=== PATIENT | female | born 1975 | race Caucasian/White ===

== ENCOUNTER 2017-04-12 21:14 | Emergency (ER) | payer SELFPAY ==
[~2017-04-12] VITALS: Ht 162.6 cm; Wt 68.9 kg
[2017-04-12 21:21] VITALS: Ht 162.6 cm; Wt 68.9 kg
--- NOTE | 2017-04-12 22:13 | ERD ---
ER Documentation Chief Complaint Chief Complaint upper abd pain radaiting to back, w/ vomiting HPI 41-year-old female, previously healthy, presents to the emergency department complaining of 1 day with epigastric pain radiated to the back associated with nausea postprandial emesis 2. The pain is rated 7/10, constant, sharp. No treatment attempted at this time. No history of previous episodes. The patient denies fevers, chills, diarrhea, constipation, no urinary symptoms. ROS A 12-point review of systems was performed and negative other than presented in the history of present illness. SYSTEMIC symptoms: no fever, chills, no night sweats, no weight loss EYE symptoms: No blurred vision, no eye discharge OTOLARYNGEAL symptoms: No hearing loss. No ear pain, no sore throat CARDIOVASCULAR symptoms: No chest pain or discomfort, no palpitations. PULMONARY symptoms: No dyspnea, no cough, no wheezing. GASTROINTESTINAL symptoms: Per HPI MUSCULOSKELETAL symptoms: No arthralgias, no muscle aches. NEUROLOGY symptoms: No confusion, no syncope, no numbness or tingling. SKIN: No rashes Medications Home Meds Active Scripts Acetaminophen* (Tylenol*) 325 Mg Tablet, 1 TAB PO Q6 Y for PAIN AND OR ELEVATED TEMP, #20 TAB Prov:ÓSCAR QUINTANILLA MD 04/13/17 Ranitidine Hcl* (Zantac*) 150 Mg Tablet, 150 MG PO BID Y for EPIGASTRIC PAIN, # 30 TAB Prov:ÓSCAR QUINTANILLA MD 04/13/17 Allergies Allergies: Coded Allergies: No Known Allergy (Verified Allergy, Unknown, 03/26/07) PMhx/Soc History of Surgery: Yes (c/s x 2) Hx Miscellaneous Medical Probl: Yes (HEP B) Hx Alcohol Use: No Hx Substance Use: No Hx Tobacco Use: No Smoking Status: Never smoker Physical Exam Vitals Vital Signs Date Time Temp Pulse Resp B/P Pulse Ox O2 Delivery O2 Flow Rate FiO2 04/13/17 01:05 98.4 78 16 122/67 100 Room Air 04/12/17 21:21 99.4 100 20 151/86 100 Physical Exam Patient is in no acute distress, vital signs stable. Alert and fully oriented. EYES: PERRLA, EOMI, Sclera and conjunctiva appear normal. EARS: Canals clear, tympanic membranes WNL THROAT: Normal oropharynx. NECK: Supple, No lymphadenopathy. Full ROM without pain or tenderness. HEART: RRR, no rubs, murmurs, clicks or gallops. LUNGS: Clear to auscultation. ABDOMEN: Soft, mild tenderness in epigastric area. No peritoneal signs EXTREMITIES: No edema bilaterally. BACK: Full ROM, no deformity, normal back exam NEURO: Cranial nerves grossly intact, no motor or sensory deficit Result Diagram: 04/12/17224304/12/172243 Results 24 hrs Laboratory Tests Test 04/12/17 22:41 04/12/17 22:44 Urine Color YELLOW Urine Clarity CLEAR Urine pH 9.0 Urine Specific [place] 1.012 Urine Ketones 1+mg/dL Urine Nitrite NEGATIVEmg/dL Urine Bilirubin NEGATIVEmg/dL Urine Urobilinogen NEGATIVEmg/dL Urine Leukocyte Esterase NEGATIVELeu/ul Urine Hemoglobin NEGATIVEmg/dL Urine Glucose NEGATIVEmg/dL Urine Total Protein NEGATIVEmg/dl White Blood Count 8.010^3/ul Red Blood Count 4.7410^6/ul Hemoglobin 14.2g/dl Hematocrit 40.5% Mean Corpuscular Volume 85.4fl Mean Corpuscular Hemoglobin 30.0pg Mean Corpuscular Hemoglobin Concent 35.1g/dl Red Cell Distribution Width 12.2% Platelet Count 57927^3/UL Mean Platelet Volume 10.8fl Neutrophils % 90.3% Lymphocytes % 5.6% Monocytes % 3.6% Eosinophils % 0.2% Basophils % 0.2% Nucleated Red Blood Cells % 0.0/100WBC Neutrophils # 7.210^3/ul Lymphocytes # 0.510^3/ul Monocytes # 0.310^3/ul Eosinophils # 0.010^3/ul Basophils # 0.010^3/ul Nucleated Red Blood Cells # 0.010^3/ul Sodium Level 139mmol/L Potassium Level 3.7mmol/L Chloride Level 102mmol/L Carbon Dioxide Level 26mmol/L Anion Gap 15 Blood Urea Nitrogen 7mg/dl Creatinine 0.72mg/dl Glucose Level 141mg/dl Calcium Level 9.8mg/dl Total Bilirubin 0.5mg/dl Direct Bilirubin 0.00mg/dl Indirect Bilirubin 0.5mg/dl Aspartate Amino Transf (AST/SGOT) 29IU/L Alanine Aminotransferase (ALT/SGPT) 42IU/L Alkaline Phosphatase 126IU/L Total Protein 8.9g/dl Albumin 4.5g/dl Globulin 4.40g/dl Albumin/Globulin Ratio 1.02 Lipase 69U/L Current Medications Medications (Trade) Dose Ordered Sig/Brenda Route PRN Reason Start Time Stop Time Status Last Admin Dose Admin Sodium Chloride (NS) 500 ml @ 500 mls/hr Q1H STAT IV 04/12/17 22:24 04/12/17 23:23 DC 04/12/17 23:04 Morphine Sulfate (morphine) 2 mg ONCE STAT IV 04/12/17 22:24 04/12/17 22:27 DC 04/12/17 23:04 Ondansetron HCl (Zofran Inj) 4 mg ONCE STAT IV 04/12/17 22:24 04/12/17 22:27 DC 04/12/17 23:04 Famotidine (Pepcid Iv) 20 mg ONCE STAT IV 04/12/17 22:24 04/12/17 22:27 DC 04/12/17 23:04 [place] [id number] Radiology Main Line: [phone] DIAGNOSTIC IMAGING REPORT Patient: JUJU BARTON : 1975 Age: 41 Sex: F MR #: [id number] DOS: 04/12/172223 Ordering MD: ÓSCAR QUINTANILLA MD Location: [facility] Room/Bed: PROCEDURE: US right upper quadrant CLINICAL INDICATION: Abdominal pain TECHNIQUE: Multiple real-time images were acquired of the patient's right upper abdomen utilizing a high resolution transducer. COMPARISON: None available FINDINGS: Liver: Normal in size, contour and echogenicity. Normal directional blood flow is seen within the patent main portal vein. The maximum dimension estimated at 13 cm . Gallbladder: Normal. No sonographic Muro's sign is reported. Common bile duct: Normal; 2.7 mm. There is no evidence for choledocholithiasis. Right Kidney: Normal; maximum length measured at approximately 10 cm. Pancreas: Visualized portions are normal. The tail is partially obscured by bowel gas. RPTAT:HJJR IMPRESSION: Normal right upper quadrant ultrasound. Physician Chris Date Time Electronically viewed and signed by Physician Chris on 04/12/2017 23:08 JR/ CC: ÓSCAR QUINTANILLA MD Procedures/MDM 41-year-old female, previously healthy, presents to the emergency department complaining of 1 day with right upper quadrant abdominal pain radiating to the back associated with vomiting Vital signs stable, Physical exam unremarkable. Differential diagnosis include but not limited to: UTI, colitis, gastroenteritis , kidney stones, irritable bowel syndrome, inflammatory bowel syndrome, malabsorption syndrome, cholelithiasis, food intolerance, medication side effect , pancreatitis, diverticulitis, bowel obstruction. Low suspicion for acute abdomen Pertinent Data: 12 Lead ECG: Sinus rhythm, no ST elevation, mild abnormal T wave, normal intervals Labs: CBC: normal, CMP: normal kidney and liver function, normal electrolytes. Lipase: normal Radiology: Right upper quadrant ultrasound: Normal Physical examination and clinical presentation consistent most likely with gastritis. During the ED course the patient remained stable, no new complaints. The patient received treatment with IV fluids, morphine, Pepcid presenting overall improvement of the symptoms. Results and clinical impression discussed with patient who agrees with management. The patient is stable to be treated outpatient and will be discharged home with a Rx for ranitidine and Tylenol, some side effects of prescribed medications (headache, rash, nausea, vomiting, diarrhea, drowsiness, habituation, bleeding, hypertension, interactions with other medications) were reviewed. The patient was instructed to follow up with the primary care provider in the next 48h. If symptoms persist, worsen or new symptoms develop, then patient should return to the ED immediately. Instructions explained and given directly by me to the patient with acknowledgment and demonstrated understanding. Disclaimer: Inadvertent spelling and grammatical errors are likely due to EHR/ dictation software use and do not reflect on the overall quality of patient care. Also, please note that the electronic time recorded on this note does not necessarily reflect the actual time of the patient encounter. Departure Diagnosis: Primary Impression: Abdominal pain Additional Impression: Gastritis Condition: Stable Additional Instructions: Call your primary care doctor TOMORROW for an appointment during the next 1-2 days. See the doctor sooner or return here if your condition worsens before your appointment time. Thank you very much for allowing us to participate in your care. Your health and safety is our top priority at [facility]. Have prescriptions filled and follow precisely the directions on the label. Follow-up with primary care provider during the next 4 days and bring all the information and medications prescribed. If illness has not improved in 2 days, then make an appointment with primary care provider. If the provider is unavailable, return to the Emergency Department immediately. ÓSCAR QUINTANILLA MD Apr 12, 2017 22:13
[2017-04-12] MEDS ORDERED: morphine 2 MG INJ IV STA (22:24)
[2017-04-12] MEDS ORDERED: FAMOTIDINE 20 MG INJ IV STA (22:24)
[2017-04-12] MEDS ORDERED: SOD CHLORIDE 0.9% 500 ML IV STA (22:24)
[2017-04-12] MEDS ORDERED: ONDANSETRON 4 MG INJ IV STA (22:24)
--- NOTE | 2017-04-12 23:08 | RADRPT ---
PROCEDURE: US right upper quadrant CLINICAL INDICATION: Abdominal pain TECHNIQUE: Multiple real-time images were acquired of the patient's right upper abdomen utilizing a high resolution transducer. COMPARISON: None available FINDINGS: Liver: Normal in size, contour and echogenicity. Normal directional blood flow is seen within the p atent main portal vein. The maximum dimension estimated at 13 cm . Gallbladder: Normal. No sonographic Muro's sign is reported. Common bile duct: Normal; 2.7 mm. There is no evidence for choledocholithiasis. Right Kidney: Normal; maximum length measured at approximately 10 cm. Pancreas: Visualized portions are normal. The tail is partially obscured by bowel gas. RPTAT:HJJR IMPRESSION: Normal right upper quadrant ultrasound. Physician Chris Date Time Electronically viewed and signed by Physician Chris on 04/12/2017 23:08 /
[2017-04-12 23:26] LABS: ABNORMAL IP MESSAGE 1; BASOPHILS % 0.2 % (0.0-2.0); EOSINOPHILS % 0.2 % (0.0-7.0); HEMATOCRIT 40.5 % (37.0-47.0); HEMOGLOBIN 14.2 g/dl (12.0-16.0); LYMPHOCYTES # 0.5 10^3/ul (0.8-2.9); LYMPHOCYTES % 5.6 % (15.0-51.0); MEAN CORPUSCULAR HGB CONC 35.1 g/dl (32.0-37.0); MEAN CORPUSCULAR VOLUME 85.4 fl (82.0-101.0); MEAN PLATELET VOLUME 10.8 fl (7.4-10.4); MONOCYTE # 0.3 10^3/ul (0.3-0.9); MONOCYTES % 3.6 % (0.0-11.0); NEUTROPHIL # 7.2 10^3/ul (1.6-7.5); NEUTROPHILS % 90.3 % (39.0-77.0); PLATELET COUNT 226 10^3/UL (140-415); RED BLOOD COUNT 4.74 10^6/ul (4.20-5.40); RED CELL DISTRIBUTION WIDTH 12.2 % (11.5-14.5)
[2017-04-12 23:31] LABS: ADD UMIC NO; UR ASCORBIC ACID NEGATIVE (NEGATIVE); UR BILIRUBIN (Dip) NEGATIVE (NEGATIVE); UR BLOOD (Dip) NEGATIVE (NEGATIVE); UR CLARITY CLEAR (CLEAR); UR COLOR YELLOW (YELLOW); UR GLUCOSE (Dip) NEGATIVE (NEGATIVE); UR KETONES (Dip) 1+ mg/dL (NEGATIVE); UR LEUKOCYTE ESTERASE (Dip) NEGATIVE Leu/ul (NEGATIVE); UR NITRITE (Dip) NEGATIVE (NEGATIVE); UR SPECIFIC GRAVITY (Dip) 1.012 (1.003-1.030); UR TOTAL PROTEIN (Dip) NEGATIVE (NEGATIVE); UR UROBILINOGEN (Dip) NEGATIVE (NEGATIVE)
[2017-04-12 23:32] LABS: POSITIVE DIFF @See below
[2017-04-12 23:49] LABS: ALBUMIN 4.5 g/dl (3.3-4.9); ALBUMIN/GLOBULIN RATIO 1.02; BILIRUBIN,INDIRECT 0.5 mg/dl (0-1.1); BILIRUBIN,TOTAL 0.5 mg/dl (0.2-1.3); CALCIUM 9.8 mg/dl (8.4-10.2); CREATININE 0.72 mg/dl (0.44-1.00); POTASSIUM 3.7 mmol/L (3.5-5.1); TOTAL PROTEIN 8.9 g/dl (6.1-8.1)
--- NOTE | 2017-04-13 00:37 | RADRPT ---
PROCEDURE: XR Chest. CLINICAL INDICATION: Abdominal pain. TECHNIQUE: PA and lateral views of the chest. COMPARISON: None. FINDINGS: The cardiomediastinal silhouette is within normal limits. The lungs are clear. No signs of pleural f luid or pneumothorax are seen. The osseous structures and soft tissues are unremarkable. IMPRESSION: No evidence for active cardiopulmonary disease. RPTAT: UU Physician Faith Date Time Electronically viewed and signed by Physician Faith on 04/13/2017 00:37 RS/
[2017-04-13] MEDS ORDERED: RANI150T9 PO (00:51)
[2017-04-13] MEDS ORDERED: ACET325T33 PO (00:51)
[2017-04-13 01:05] VITALS: BP 122/67; PULSE 78; RESP 16; TEMP 98.4
== END 2017-04-13 01:07 | disposition home or self-care (01) ==
LOC: FTE 21:14
DX: K29.70 Gastritis, unspecified, without bleeding (principal)
CPT/HCPCS: 36415; 71010; 76705; 80053; 81003; 83690; 85025; 96374; 96375; 99285; J2270; J2405; J7040; 93005